=== PATIENT | female | born 1955 | race Caucasian/White ===

== ENCOUNTER 2019-03-02 08:31 | Emergency (ER) | payer OTHER ==
[2019-03-02 08:46] VITALS: BP 170/92
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
== END 2019-03-02 10:17 | disposition home or self-care (01) ==
LOC: UCEAST 08:31
DX: S62.634A Displaced fracture of distal phalanx of right ring finger, initial encounter for closed fracture (principal); W18.00XA Striking against unspecified object with subsequent fall, initial encounter; Y92.9 Unspecified place or not applicable; I10 Essential (primary) hypertension; K21.9 Gastro-esophageal reflux disease without esophagitis
CPT/HCPCS: 72110; 73140; 99203; G0463

== ENCOUNTER 2022-08-19 06:31 | Observation (INO) ==
[~2022-08-19 06:31] MED LIST: Buffered Lidocaine 1% SYRIN 1 ml INTRADERM ONE; Lactated Ringers 1000 ml BAG 1,000 ML IV SCH; Naloxone 0.4 mg VIAL 0.4 mg/ml 1 ml VIAL IV PRN; Ondansetron 4 mg VIAL 2 MG/ML 2 ml VIAL IV PRN
[2022-08-19] MEDS ORDERED: ceFAZolin 2 GM in NS PREMIX 2 GM/100 ML BAG IVPB ONE (07:09)
[2022-08-19] MEDS ORDERED: Lidocaine 2% PF 5 ML VIAL ONE (08:47)
[2022-08-19] MEDS ORDERED: Midazolam 2 mg/2 ml VIAL 1 mg/ml 2 ml VIAL (2 mg) ONE (08:47)
[2022-08-19] MEDS ORDERED: fentaNYL 100 mcg/2 ml 50 MCG/ML VIAL ONE ×3 (08:47→14:30)
[2022-08-19] MEDS ORDERED: Acetaminophen IV 1 GM/100ML 1,000 MG/100 ML BAG IV ONE (11:24)
[2022-08-19] MEDS ORDERED: Lactulose 30 ml UDC PO PRN (11:55)
[2022-08-19] MEDS ORDERED: Ondansetron 4 mg VIAL 2 MG/ML 2 ml VIAL IV PRN (11:55)
[2022-08-19] MEDS ORDERED: Ondansetron ODT 4 mg TAB 4 MG TAB PO PRN (11:55)
[2022-08-19] MEDS ORDERED: Magnesium Hydroxide LIQ 30 ML UDC PO PRN (11:55)
[2022-08-19] MEDS ORDERED: Morphine 2 MG/ML SYRINGE IV PRN (11:55)
[2022-08-19] MEDS ORDERED: Propofol 10 MG/ML 20 ML BTL ONE (12:48)
[2022-08-19] MEDS: fentaNYL 100 mcg/2 ml 50 MCG/ML VIAL IV PRN ×5 (13:41→14:32)
[2022-08-19] MEDS ORDERED: Ondansetron 4 mg VIAL 2 MG/ML 2 ml VIAL ONE (14:45)
[2022-08-19] MEDS: Lactated Ringers 1000 ml BAG 1,000 ML IV SCH (16:00)
[2022-08-19] MEDS ORDERED: CMCS: Lactase Enzyme (NF) 3,000 UNIT TAB PO PRN (16:22)
[2022-08-19] MEDS: Clindamycin 600 MG/D5W BAG 600 MG/50 ML BAG IV SCH (18:09)
[2022-08-19] MEDS: Magnesium Hydroxide LIQ 30 ML UDC PO SCH (22:21)
[2022-08-20] MEDS: Lactated Ringers 1000 ml BAG 1,000 ML IV SCH (02:25)
[2022-08-20] MEDS: Clindamycin 600 MG/D5W BAG 600 MG/50 ML BAG IV SCH ×2 (02:25→10:00)
[2022-08-20 05:54] LABS: Hematocrit 30 % (35-47); Hemoglobin 10.5 g/dL (12.0-16.0); Mean Platelet Volume 7.4 fL (7.4-10.4); Platelet Count 157 10^3/uL (150-450)
[2022-08-20 06:21] LABS: Calcium 8.4 mg/dL (8.6-10.3); Creatinine, Serum 0.54 mg/dL (0.51-0.95); eGFR CKD-EPI 102.1 (>60)
[2022-08-20] MEDS: Magnesium Hydroxide LIQ 30 ML UDC PO SCH (08:06)
[2022-08-20] MEDS ORDERED: Vitamin THERAPEUTIC TAB PO SCH (09:00)
[2022-08-20 11:16] VITALS: BP 114/68
== END 2022-08-20 14:50 | disposition home or self-care (01) ==
LOC: SSU 06:31 → OR 06:31
PROVIDERS: ADMIT Orthopaedic Surgery Adult Reconstructive Orthopaedic Surgery; ATTEND Orthopaedic Surgery Adult Reconstructive Orthopaedic Surgery

== ENCOUNTER 2023-08-18 06:24 | Observation (INO) ==
[~2023-08-18 06:24] MED LIST changes: +Famotidine IV 10 MG/ML 2 ml VIAL (20 mg) IV ONE; -Naloxone 0.4 mg VIAL 0.4 mg/ml 1 ml VIAL IV PRN; -Ondansetron 4 mg VIAL 2 MG/ML 2 ml VIAL IV PRN
[2023-08-18] MEDS ORDERED: ceFAZolin 2 GM PREMIX 2 GM/50 ML BAG ONE (07:00)
[2023-08-18] MEDS ORDERED: Famotidine IV 10 MG/ML 2 ml VIAL (20 mg) ONE (07:00)
[2023-08-18] MEDS ORDERED: Tranexamic Acid 1 GM/100ML BAG 2,000 MG/200 ML BAG IV ONE (07:00)
[2023-08-18] MEDS ORDERED: ROPIVACAINE 5 MG/ML 30 ML BTL (0.5%) ONE (07:25)
[2023-08-18 07:30] LABS: Rapid COVID-19 Molecular Undetected (Undetected)
[2023-08-18] MEDS ORDERED: Midazolam 2 mg/2 ml VIAL 1 mg/ml 2 ml VIAL (2 mg) ONE (07:32)
[2023-08-18] MEDS ORDERED: fentaNYL 100 mcg/2 ml 50 MCG/ML VIAL ONE (07:32)
[2023-08-18] MEDS ORDERED: Phenylephrine 40 mcg/mL 10mL (400mcg) SYRINGE ONE (07:32)
[2023-08-18] MEDS ORDERED: Naloxone 0.4 mg VIAL 0.4 mg/ml 1 ml VIAL IV PRN (08:38)
[2023-08-18] MEDS ORDERED: fentaNYL 100 mcg/2 ml 50 MCG/ML VIAL IV PRN (08:38)
[2023-08-18] MEDS ORDERED: Ondansetron 4 mg VIAL 2 MG/ML 2 ml VIAL IV PRN ×2 (08:38→11:56)
[2023-08-18] MEDS ORDERED: KETAMINE HCL 10 MG/ML 20 ml VIAL (200 MG) ONE (09:29)
[2023-08-18] MEDS ORDERED: HYDROmorphone 0.5 MG/0.5 ML SYRINGE ONE ×2 (09:37→10:19)
[2023-08-18] MEDS ORDERED: Propofol 10 MG/ML 20 ML BTL ONE ×3 (10:02→11:09)
[2023-08-18] MEDS ORDERED: Acetaminophen IV 1 GM/100ML 1,000 MG/100 ML BAG IV ONE (10:03)
[2023-08-18] MEDS ORDERED: Ondansetron 4 mg VIAL 2 MG/ML 2 ml VIAL ONE (10:03)
[2023-08-18] MEDS ORDERED: Dexamethasone IV 4 MG/ML VIAL 1 ml VIAL ONE (10:03)
[2023-08-18] MEDS ORDERED: Bupivacaine-MPF SPINAL 7.5 MG/ML - 2ML AMP ONE (10:39)
[2023-08-18] MEDS ORDERED: EPINEPHrine SYR 0.1MG/ML 10 ml SYRINGE IV ONE (11:11)
[2023-08-18] MEDS ORDERED: Lactulose 30 ml UDC PO PRN (11:56)
[2023-08-18] MEDS ORDERED: Morphine 2 MG/ML SYRINGE IV PRN (11:56)
[2023-08-18] MEDS ORDERED: Ondansetron ODT 4 mg TAB 4 MG TAB PO PRN (11:56)
[2023-08-18] MEDS ORDERED: Magnesium Hydroxide LIQ 30 ML UDC PO PRN (11:56)
[2023-08-18] MEDS: Lactated Ringers 1000 ml BAG 1,000 ML IV SCH (14:56)
[2023-08-18] MEDS ORDERED: HYDROcodone/ACETAMIN 5/325 mg TAB PO PRN (16:11)
[2023-08-18] MEDS: ceFAZolin 1 GM ADVAN 1 GM in NS 0.9% 50 ML 50 ML IVPB SCH (17:15)
[2023-08-18] MEDS ORDERED: Scopolamine 1 mg/72hr PATCH TRANSDERM PRN (19:42)
[2023-08-18] MEDS: Magnesium Hydroxide LIQ 30 ML UDC PO SCH (20:53)
[2023-08-19] MEDS: ceFAZolin 1 GM ADVAN 1 GM in NS 0.9% 50 ML 50 ML IVPB SCH ×2 (01:34→08:44)
[2023-08-19] MEDS: Lactated Ringers 1000 ml BAG 1,000 ML IV SCH (04:05)
[2023-08-19 08:09] LABS: Platelet Count 227 10^3/uL (150-450)
[2023-08-19 08:27] LABS: Calcium 8.8 mg/dL (8.6-10.3); Creatinine, Serum 0.75 mg/dL (0.51-0.95); Potassium 4.1 mmol/L (3.5-5.0); eGFR CKD-EPI 87.8 (>60)
[2023-08-19] MEDS: Magnesium Hydroxide LIQ 30 ML UDC PO SCH (08:46)
[2023-08-19 08:53] LABS: Hematocrit 31.6 % (35-45); Hemoglobin 10.9 g/dL (11.5-14.3); Mean Platelet Volume 7.5 fL (7.5-11.2)
[2023-08-19] MEDS ORDERED: Vitamin THERAPEUTIC TAB PO SCH (09:00)
[2023-08-19 10:27] VITALS: BP 135/57
== END 2023-08-19 12:07 | disposition home or self-care (01) ==
LOC: OR 06:24 → SSU 06:24
PROVIDERS: ADMIT Orthopaedic Surgery Adult Reconstructive Orthopaedic Surgery; ATTEND Orthopaedic Surgery Adult Reconstructive Orthopaedic Surgery